=== PATIENT | male | born 2000 | race Hispanic/Latino ===

== ENCOUNTER 2024-05-30 22:55 | Emergency (ER) | payer OTHER ==
[~2024-05-30] VITALS: Ht 160 cm; Wt 73.5 kg
[2024-05-30] MEDS: KETOROLAC 30MG VIAL (30MG/ML) IVP ONE (23:40)
[2024-05-31 01:24] VITALS: BP 128/72; PULSE 71; RESP 12; O2SAT 100
[2024-05-31] MEDS ORDERED: IBUP-2070 PO (01:33)
== END 2024-05-31 01:38 | disposition home or self-care (01) ==
LOC: EDH 22:55
DX: S83.91XA Sprain of unspecified site of right knee, initial encounter (principal); X58.XXXA Exposure to other specified factors, initial encounter; Y93.66 Activity, soccer; Y92.89 Other specified places as the place of occurrence of the external cause; Y99.8 Other external cause status
CPT/HCPCS: 99285; 96374; 73562; 73700; J1885

== ENCOUNTER 2025-04-18 13:06 | Emergency (ER) | payer OTHER ==
[~2025-04-18] VITALS: Ht 160 cm; Wt 76.2 kg
[~2025-04-18 13:06] MED LIST: IBUP-2070 PO
--- NOTE | 2025-04-18 17:25 | HMCIMG ---
EXAM: CR Lumbar Spine, 3 View. CLINICAL HISTORY: r/o fx COMPARISON: None provided. FINDINGS: BONES: No acute fracture or aggressive appearing osseous lesion. ALIGNMENT: Alignment is within normal limits. No significant scoliosis. DISCS / DEGENERATIVE CHANGES: Mild disc disease at L5-S1. SOFT TISSUES: The soft tissues are unremarkable. IMPRESSION: 1. No acute findings. /[place]
[2025-04-18] MEDS ORDERED: CYCL10TA16 PO (17:38)
[2025-04-18] MEDS ORDERED: KETO10TA2 PO (17:38)
--- NOTE | 2025-04-18 17:39 | ERN ---
General Chief Complaint: Back Pain-No Injury Stated Complaint: BACK PAIN Time Seen by MD: 13:29 Time Seen by Midlevel: 13:29 Source: patient History of Present Illness Initial Comments Patient is a 24-year-old male presenting to the emergency department for low back pain. The patient states he was working on his car when he removed the dashboard and felt pain in his lower back. Denies any other injury. The pain has been persistent over the last three days and is worse with certain movements. Denies any urinary/bowel incontinence. Denies any focal weakness. Denies any numbness or tingling to bilateral lower extremities. Allergies: Coded Allergies: No Known Allergies (Unverified Allergy, Unknown, 05/30/24) Home Meds Active Scripts Ibuprofen (Ibuprofen) 600 Mg Tablet, 600 MG PO Q6H PRN for PAIN, #15 TAB Prov:SHARITA WHITE MD 05/31/24 Past Medical History Past Medical History: No Pertinent History Past Surgical History: None ROS Dictation CONSTITUTIONAL: Negative except for HPI HEAD/FACE: Negative except for HPI EENT: Negative except for HPI RESPIRATORY: Negative except for HPI GASTROINTESTINAL/ABDOMINAL: Negative except for HPI GENITOURINARY: Negative except for HPI MUSCULOSKELETAL: Negative except for HPI INTEGUMENTARY: Negative except for HPI NEUROLOGICAL/PSYCH: Negative except for HPI HEMATOLOGIC/LYMPHATIC: Negative except for HPI All Systems Negative, Except as noted above. 13 point review of systems assessed and all negative except for above. Physical Exam Physical Exam Dictation Vital Signs reviewed General Appearance: Alert, oriented x 3, no acute distress, well developed, nourished. Head and Face: non-traumatic. Eyes: PERRL, pink conjunctivas, eyelid no trauma, anterior chamber with arcus senilis. Ears: Pinnas intact and no signs of trauma or erythema ear canals clear and no discharge TM no erythema Nose: No discharge, no bleeding. Oropharynx: Mouth normal, tongue pink, pharynx clear,no erythema, tonsils no exudates, no abscesses noted, mucous membrane moist Neck: Supple, non-tender, no thyromegaly, no masses, no JVD, no bruits Breast:Deferred Chest:No tenderness, no crepitus, no paradoxical movement, no retractions Lungs:Clear, well-ventilated, symmetric, no rales, no wheezing, no rhonchi, no stridor, good breath sounds bilaterally Heart: Regular rate, regular rhythm, no murmur, no gallops Vascular: no peripheral edema, Abdomen: Soft, positive bowel sounds, nondistended, no guarding, nontender, no rebound, no masses no hepatomegaly, no splenomegaly, no Ga's sign, no hernias. Rectal: Deferred Genital: Deferred Neurological: Normal speech, motor function intact, sensory function intact Musculoskeletal: Neck nontender, full range of motion, back nontender, full range of motion, Extremities: nontender, full range of motion Skin: Color pink, dry, no turgor, no rash, no lacerations, no abrasions, no contusions. Lymphatic: Deferred MDM MDM: Differential diagnosis: Contusion, fracture, dislocation, strain There are no social concerns with this patient. Prescription drug management Prescriptions will include: Toradol Medical management and examination interpretation discussions were had by me with other qualified healthcare professionals as indicated for the patient's care. ED Course Orders Procedure Category Date Status Time Lumbar Spine 2-3vws RAD 04/18/25 Resulted 15:49 Ketorolac PHA 04/18/25 Verified Tromethamine 30mg/Ml 18:00 Dexamethasone 4mg/Ml PHA 04/18/25 Verified 1ml Vial (Dexametha 18:00 Vital Signs Date Time Temp Pulse Resp B/P (MAP) Pulse Ox O2 Delivery O2 Flow Rate FiO2 04/18/25 13:27 98.1 86 16 142/94 98 Room Air* 0 21 04/18/25 13:07 98.1 86 16 142/94 98 Room Air 0 DX & DISP Disposition: Discharge Departure Impression: Primary Impression: Lumbar strain Condition: Stable Scripts Cyclobenzaprine HCl (Flexeril) 10 Mg Tab 10 MG PO TID for muscle sstiffness for 7 Days, #21 TAB 0 Refills Prov: BALJEET MARTINEZ 04/18/25 Ketorolac Tromethamine (Ketorolac Tromethamine) 10 Mg Tablet 1 TAB PO TID for pain for 5 Days, #15 TAB 0 Refills Prov: BALJEET MARTINEZ 04/18/25 Referrals: SELF,REFERRAL (PCP) Time of Disposition: 17:37 I have reviewed the case, and I agree with, Diagnosis and Plan I performed the substantive portion of the visit. I have reviewed and personally made and approve the management plan that is documented in the note by myself or the [facility]. I acknowledge for responsibility for the patient's management plan. BALJEET MARTINEZ Apr 18, 2025 17:39
[2025-04-18] MEDS: dexaMETHasone SOD PHOSPHATE 4 MG/ML 1ML VIAL IM SCH (17:47)
[2025-04-18] MEDS: ketOROlac 30MG VIAL (30MG/ML) IM SCH (17:47)
[2025-04-18 17:54] VITALS: BP 138/74; PULSE 82; RESP 16; TEMP 98.1; O2SAT 98
== END 2025-04-18 17:55 | disposition home or self-care (01) ==
LOC: EDH 13:06
DX: S39.012A Strain of muscle, fascia and tendon of lower back, initial encounter (principal); X58.XXXA Exposure to other specified factors, initial encounter; Y93.89 Activity, other specified; Y92.89 Other specified places as the place of occurrence of the external cause; Y99.8 Other external cause status
CPT/HCPCS: 99284; 72100; 96372 ×2; J1100; J1885